=== PATIENT | female | born 1945 | race African-American/Black ===

== ENCOUNTER → 2017-08-26 | Outpatient (CLI) | payer MEDICARE, OTHER ==
[~2017-08-26] MED LIST: ADVA115A INH; ADVA250A INH; ALBU0.08 NEB; AMLO10TA2 PO; ASPI1TAB69 PO; BETH25TA2 PO; BRIM0.155 EACH EYE; BRIM0.2S4 EACH EYE; CALC500C6 CHEW; DEXI60CA PO; ETOD400T PO; FLUO20CA12 PO; FLUO40CA PO; FLUO60TA PO; FLUT1SPR9 EACH NARE; FURO40TA PO; GABA300C5 PO; HYDR50TA3 PO; IPRASOL INH; LEUC10TA; LOSA50TA PO; LUMI0.01 EACH EYE; METH2.5T PO; METH5INJ; NEBULIZER1 MI1; NORC5TAB PO; OMEGCAP PO; PANT40TA3 PO; POTA-243 PO; SIMV40TA PO; SPIRCAP INH; VENTAER INH; ZOFR4TAB PO
--- NOTE | 2017-08-29 10:57 | RSPPFT ---
DATE OF PROCEDURE: 08/26/17 COMMENTS: Spirometry with normal flow rates and ratios without suggestion of airways obstruction or restriction. IMPRESSION: 1. Essentially normal spirometry.
== END ==
LOC: HRSP 09:22
PROVIDERS: ATTEND Family Medicine
DX: J45.909 Unspecified asthma, uncomplicated (principal)
CPT/HCPCS: 94060

== ENCOUNTER 2017-09-08 17:46 | Emergency (ER) | payer MEDICARE, MEDICAID ==
[~2017-09-08] VITALS: Ht 157.5 cm; Wt 113.0 kg
[~2017-09-08 17:46] MED LIST changes: -ADVA250A INH; -BRIM0.2S4 EACH EYE; +KLOR10TA PO; -POTA-243 PO; -ZOFR4TAB PO
[2017-09-08 17:47] VITALS: BP 178/88; PULSE 90; RESP 15; TEMP 99.1; O2SAT 97
[2017-09-08] MEDS ORDERED: ACETAMINOPHEN 325 MG TAB PO ONE (19:45)
[2017-09-08] MEDS ORDERED: SODIUM CHLORIDE 0.9% FLUSH 10 ML FLUSH IVF PRN (19:45)
[2017-09-08] MEDS ORDERED: SODIUM CHLOR 0.9% 1000 ML INJ 1,000 ML IV ONE (19:45)
--- NOTE | 2017-09-08 20:04 | RADRPT ---
EXAM DATE/TIME: 09/08/2017 19:50 [place] COMPARISON: CHEST SINGLE AP, October 12, 2016, 21:47. INDICATIONS : Chest pain. MEDICAL HISTORY : None. SURGICAL HISTORY : None. ENCOUNTER: Initial ACUITY: 1 day PAIN SCORE: 4/10 LOCATION: Bilateral chest FINDINGS: A single view of the chest demonstrates the lungs to be symmetrically aerated without evidence of mas s, infiltrate or effusion. Heart size remains mildly prominent. The Osseous structures are intact. CONCLUSION: No acute disease. Kan Sharma MD on September 08, 2017 at 19:58 Board Certified Radiologist. This report was verified electronically.
[2017-09-08 20:13] VITALS: RESP 20
[2017-09-08 20:27] LABS: AUTOMATED NEUTROPHIL # 6.8 TH/MM3 (1.8-7.7); BASOPHIL # 0.1 TH/MM3 (0-0.2); BASOPHIL % 0.9 % (0.0-2.0); EOSINOPHIL % 0.4 % (0.0-4.0); HEMATOCRIT 37.1 % (35.0-46.0); HEMO FLAGS DIFF FINAL; LYMPH % 12.2 % (9.0-44.0); MEAN CELL VOLUME 89.3 FL (80.0-100.0); MEAN CORPUSCULAR HGB CONC 33.6 % (32.0-36.0); MONO % 5.3 % (0.0-8.0); NEUT % 81.2 % (16.0-70.0); PLATELET COUNT 378 TH/MM3 (150-450); RED BLOOD COUNT 4.15 MIL/MM3 (4.00-5.30); RED CELL DISTRIBUTION WIDTH 15.6 % (11.6-17.2); WHITE BLOOD COUNT 8.4 TH/MM3 (4.0-11.0)
[2017-09-08 20:38] LABS: ANION GAP 5 MEQ/L (5-15); AST (GOT) 21 U/L (15-37); BICARBONATE 28.9 MEQ/L (21.0-32.0); BLOOD UREA NITROGEN 6 MG/DL (7-18); CHLORIDE 108 MEQ/L (98-107); GLOMERULAR FILTRATION RATE 79 ML/MIN (>89); POTASSIUM 3.5 MEQ/L (3.5-5.1); SODIUM (NA) 142 MEQ/L (136-145)
[2017-09-08 20:39] LABS: ALT (GPT) 22 U/L (10-53)
[2017-09-08 20:41] LABS: ALKALINE PHOSPHATASE 102 U/L (45-117); TOTAL BILIRUBIN ADULT 0.4 MG/DL (0.2-1.0)
--- NOTE | 2017-09-08 20:42 | PD ---
HPI Chief Complaint: GI Complaint Time Seen by Provider: 19:25 Travel History International Travel<30 days: No Contact w/Intl Traveler<30days: No Traveled to known affect area: No History of Present Illness HPI 71-year-old Afro-[place] female presents the emergency department 4 days history of chills, nausea, vomiting, epigastric pain. Patient has history of asthma and COPD, but she denies increased cough or shortness of breath. Patient does have sinus congestion and tenderness with some postnasal drip. Patient denies diarrhea or urinary symptoms. Patient denies vaginal symptoms. Patient has mild to moderate epigastric tenderness which she feels is due to the vomiting. She feels she is not getting worse but hasn't improved after 4 days. Patient has no known drug allergies. PFSH Past Medical History Arthritis: Yes (RA) Asthma: Yes Autoimmune Disease: Yes (RA - DX 1995) Blood Disorders: No Cancer: No Cardiovascular Problems: Yes High Cholesterol: Yes (DX 1997) Coronary Artery Disease: Yes (DX 2003) Diabetes: Yes Patient Takes Glucophage: Yes Endocrine: No GERD: Yes Glaucoma: Yes Genitourinary: No Headaches: Yes Hypertension: Yes Immune Disorder: No Musculoskeletal: Yes Reproductive: No Respiratory: Yes (ASTHMA) Immunizations Current: Yes Ulcer: Yes Tetanus Vaccination: Unknown Influenza Vaccination: Yes Menopausal: Yes Past Surgical History Section: Yes Cholecystectomy: Yes Hysterectomy: Yes (30 YRS AGO) Other Surgery: Yes (R CARPAL TUNNEL REPAIR - 1999) Social History Alcohol Use: No Tobacco Use: No (reportedly quit smoking in November 2015) Substance Use: No Allergies-Medications (Allergen,Severity, Reaction): Coded Allergies: No Known Allergies (Verified Adverse Reaction, Unknown, 09/08/17) Reported Meds & Prescriptions Reported Meds & Active Scripts Active Advair Hfa 12 GM Inh (Fluticasone-Salmeterol 12 GM Inh) 115-21 Mcg/Act Aer 2 Puff INH BID Fluoxetine (Fluoxetine HCl) 40 Mg Cap 40 Cap PO DAILY To be combined with 20mg for a total of 60mg daily Fluoxetine (Fluoxetine HCl) 20 Mg Capsule 20 Mg PO DAILY to be combined with 40mg for a total of 60mg daily Albuterol Neb (Albuterol Sulfate) 2.5 Mg/3 Ml Neb 2.5 Mg NEB Q4HR NEB While awake Duoneb (Ipratropium-Albuterol Neb) 0.5-2.5 Mg/3 Ml Neb 1 Nebule INH Q4HR NEB Gabapentin 300 Mg Cap 300 Mg PO DAILY Losartan (Losartan Potassium) 50 Mg Tab 50 Mg PO DAILY Hydrochlorothiazide 50 Mg Tab 50 Mg PO DAILY Brimonidine Opth Drops (Brimonidine Tartrate) 0.15% Soln 1 Drop EACH EYE BID Amlodipine (Amlodipine Besylate) 10 Mg Tab 10 Mg PO DAILY Fluoxetine (Fluoxetine HCl) 60 Mg Tab 60 Mg PO DAILY Klor-Con 10 (Potassium Chloride) 10 Meq Tab 10 Meq PO BID Lumigan Opth Drops (Bimatoprost) 0.01% Soln 1 Drop EACH EYE HS Reported Methotrexate Inj Unknown Strength Inj Unknown Dose MONTHLY Simvastatin 40 Mg Tab 40 Mg PO HS Methotrexate 2.5 Mg Tab 15 Mg PO Q7D take fridays [place] (Hydrocodone-Acetaminophen) 5-325 mg Tab 1 Tab PO TID PRN Leucovorin (Leucovorin Calcium) 10 Mg Tab TAKE ON FRIDAYS 8 HOURS AFTER METHOTREXATE Spiriva Handihaler (Tiotropium Inh) 18 Mcg Cap 18 Mcg INH DAILY 1 capsule = 18 mcg Bethanechol 25 Mg Tab 12.5 Mg PO BID Pantoprazole (Pantoprazole Sodium) 40 Mg Tab 40 Mg PO DAILY [place]-3 Fish Oil/Vitamin (Fish Oil-Cholecalciferol) 1,000-1,000 Mg Cap 1 Cap PO DAILY Etodolac 400 Mg Tab 400 Mg PO BID Take with food. Dexilant (Dexlansoprazole) 60 Mg Cap 60 Mg PO DAILY Aspirin 81 Mg Tabdr 81 Mg PO DAILY Calcium Carbonate 500 Mg Chew 500 Mg CHEW DAILY 500 mg calcium carbonate (200 mg elemental calcium) Nebulizer 1 Mis Mis 1 Ea .ROUTE DIRECTED Furosemide 40 Mg Tab 40 Mg PO DAILY Flonase Allergy Relief Children Nasal [place] (Fluticasone Nasal [place]) 50 Mcg/ Act [place] 2 [place] EACH NARE DAILY 50 mcg/spray Ventolin Hfa 18 GM Inh (Albuterol Sulfate) 90 Mcg/Act Aer 2 Puff INH Q6H PRN Physical Exam Narrative GENERAL: Moderately obese female in no acute distress. SKIN: Warm and dry. Normal color. Normal turgor. HEAD: Atraumatic. Normocephalic. EYES: Pupils equal and round. No scleral icterus. No injection or drainage. ENT: No nasal bleeding or discharge. Mucous membranes pink and moist. Pharynx is clear. Airway is patent. TMs are clear. No significant postnasal drip is noted. No significant sinus tenderness with palpation or percussion. NECK: Trachea midline. Supple nontender. CARDIOVASCULAR: Regular rate and rhythm. RESPIRATORY: No accessory muscle use. Clear to auscultation. Breath sounds equal bilaterally. GASTROINTESTINAL: Abdomen soft, mild epigastric tenderness, nondistended. Negative Will sign. No CVA tenderness. Hepatic and splenic margins not palpable. MUSCULOSKELETAL: Extremities without clubbing, cyanosis, or edema. No obvious deformities. NEUROLOGICAL: Awake and alert. No obvious cranial nerve deficits. Motor grossly within normal limits. Five out of 5 muscle strength in the arms and legs. Normal speech. PSYCHIATRIC: Appropriate mood and affect; insight and judgment normal. Data Data Last Documented VS Vital Signs Date Time Temp Pulse Resp B/P (MAP) Pulse Ox O2 Delivery O2 Flow Rate FiO2 09/08/17 20:13 20 09/08/17 17:47 99.1 90 97 Orders Orders Comprehensive Metabolic Panel (09/08/17 19:31) Influenzae A/B Antigen (09/08/17 19:31) Urinalysis - C+S If Indicated (09/08/17 19:31) Chest, Single Ap (09/08/17 19:31) Ecg Monitoring (09/08/17 19:31) Iv Access Insert/Monitor (09/08/17 19:31) Oximetry (09/08/17 19:31) Sodium Chloride 0.9% Flush (Ns Flush) (09/08/17 19:45) Acetaminophen (Tylenol) (09/08/17 19:45) Lactic Acid (09/08/17 19:31) Sodium Chlor 0.9% 1000 Ml Inj (Ns 1000 M (09/08/17 19:45) Complete Blood Count With Diff (09/08/17 19:35) Labs Laboratory Tests Test 09/08/17 20:05 White Blood Count 8.4 TH/MM3 Red Blood Count 4.15 MIL/MM3 Hemoglobin 12.5 GM/DL Hematocrit 37.1 % Mean Corpuscular Volume 89.3 FL Mean Corpuscular Hemoglobin 30.0 PG Mean Corpuscular Hemoglobin Concent 33.6 % Red Cell Distribution Width 15.6 % Platelet Count 378 TH/MM3 Mean Platelet Volume 6.9 FL Neutrophils (%) (Auto) 81.2 % Lymphocytes (%) (Auto) 12.2 % Monocytes (%) (Auto) 5.3 % Eosinophils (%) (Auto) 0.4 % Basophils (%) (Auto) 0.9 % Neutrophils # (Auto) 6.8 TH/MM3 Lymphocytes # (Auto) 1.0 TH/MM3 Monocytes # (Auto) 0.4 TH/MM3 Eosinophils # (Auto) 0.0 TH/MM3 Basophils # (Auto) 0.1 TH/MM3 CBC Comment DIFF FINAL Differential Comment Urine Color YELLOW Urine Turbidity CLEAR Urine pH 6.0 Urine Specific [place] 1.014 Urine Protein TRACE mg/dL Urine Glucose (UA) NEG mg/dL Urine Ketones 10 mg/dL Urine Occult Blood NEG Urine Nitrite NEG Urine Bilirubin LARGE Urine Urobilinogen LESS THAN 2.0 MG/DL Urine Leukocyte Esterase NEG Urine RBC 1 /hpf Urine WBC LESS THAN 1 /hpf Urine Squamous Epithelial Cells 2 /hpf Urine Amorphous Sediment RARE Urine Mucus FEW /lpf Microscopic Urinalysis Comment CULT NOT INDICATED Blood Urea Nitrogen 6 MG/DL Creatinine 0.86 MG/DL Random Glucose 93 MG/DL Total Protein 7.9 GM/DL Albumin 3.7 GM/DL Calcium Level 9.7 MG/DL Alkaline Phosphatase 102 U/L Aspartate Amino Transf (AST/SGOT) 21 U/L Alanine Aminotransferase (ALT/SGPT) 22 U/L Total Bilirubin 0.4 MG/DL Sodium Level 142 MEQ/L Potassium Level 3.5 MEQ/L Chloride Level 108 MEQ/L Carbon Dioxide Level 28.9 MEQ/L Anion Gap 5 MEQ/L Estimat Glomerular Filtration Rate 79 ML/MIN Lactic Acid Level 0.9 mmol/L [facility] Medical Decision Making Medical Screen Exam Complete: Yes Emergency Medical Condition: Yes Medical Record Reviewed: Yes Differential Diagnosis Nausea and vomiting. Viral illness. Influenza. Gastritis. Urinary tract infection. Narrative Course Patient appears medically stable at time of exam. CBC is unremarkable. CMP is unremarkable. Lactic acid is normal at 0.9. Urinalysis is unremarkable except for large bilirubin. And 10 ketones. Influenza is negative. Patient is given acetaminophen 650 mg by mouth. Patient is given Zofran 4 mg IV. Patient is given 1000 mg normal saline bolus. Chest x-ray is unremarkable. Patient feels better after the above treatment. Patient is felt stable for discharge home. Patient is given Zofran 4 mg every 6 hours when necessary #20. Patient is to rest, push fluids, and follow-up with her primary care physician as needed. Diagnosis Primary Impression: Nausea and vomiting Qualified Codes: R11.2 - Nausea with vomiting, unspecified Additional Impression: Viral syndrome Referrals: Primary Care Physician Patient Instructions: Acute Nausea and Vomiting (ED), General Instructions Additional Instructions: CBC is unremarkable. CMP is unremarkable. Lactic acid is normal at 0.9. Urinalysis is unremarkable except for large bilirubin. And 10 ketones. Influenza is negative. Patient is given acetaminophen 650 mg by mouth. Patient is given Zofran 4 mg IV. Patient is given 1000 mg normal saline bolus. Chest x-ray is unremarkable. Patient feels better after the above treatment. Patient is felt stable for discharge home. Patient is given Zofran 4 mg every 6 hours when necessary #20. Patient is to rest, push fluids, and follow-up with her primary care physician as needed. Med/Other Pt SpecificInfo: Prescription(s) given Disposition: DISCHARGE HOME Condition: Stable Jared Douglass Sep 08, 2017 20:42
[2017-09-08 20:43] LABS: BLOOD, URINE NEG (NEG); COMMENT (UR) CULT NOT INDICATED; CULTURE IF INDICATED CULT NOT INDICATED; GLUCOSE,URINE NEG (NEG); KETONE, URINE 10 mg/dL (NEG); MUCUS URINE FEW /lpf (OCC); NITRITE,URINE NEG (NEG); SQUAMOUS EPITHELIAL CELL URINE 2 /hpf (0-5); URINE COLOR YELLOW (YELLW/STRAW)
[2017-09-08 21:02] VITALS: RESP 20
[2017-09-08] MEDS ORDERED: ZOFR4TAB PO (21:08)
[2017-09-08] MEDS ORDERED: ONDANSETRON HCL 4 MG/2 ML VIAL IV PUSH ONE (21:15)
== END 2017-09-08 21:28 | disposition home or self-care (01) ==
LOC: NEPE 17:46
DX: R11.2 Nausea with vomiting, unspecified (principal); B34.9 Viral infection, unspecified; E11.9 Type 2 diabetes mellitus without complications; E78.00 Pure hypercholesterolemia, unspecified; I10 Essential (primary) hypertension; I25.10 Atherosclerotic heart disease of native coronary artery without angina pectoris; K21.9 Gastro-esophageal reflux disease without esophagitis; J44.9 Chronic obstructive pulmonary disease, unspecified; Z87.891 Personal history of nicotine dependence
CPT/HCPCS: 71010; 80053; 81001; 83605; 85025; 87804; 96361; 96374; 99284; J2405; J7030